=== PATIENT | male | born 1955 | race Caucasian/White ===

== ENCOUNTER 2019-04-29 16:56 | Inpatient (IN) ==
[2019-04-29 17:34] LABS: Basophils # 0.1 10*3/uL (0.0-0.2); Basophils % 0.4 % (0.0-0.8); Eosinophils % 0.1 % (0.00-10.9); Hematocrit 45.2 VOL% (42.0-52.0); Hemoglobin 14.9 GM/DL (14.0-18.0); Immature Granulocytes % 1.6 %; Immature Granulocytes Absolute 0.52 #; Lymphocytes # 1.7 10*3/uL (1.4-4.0); Lymphocytes % 5.2 % (21.2-54.2); Mean Platelet Volume 11.9 FL (9.6-12.0); Neutrophils % 85.7 % (38.7-73.9); Platelet Count 197 T/CUMM (130-400); Red Blood Count 5.02 MC/CUMM (3.8-5.5); Red Cell Distribution Width 13.2 % (9.3-17.3); White Blood Count 32.9 T/CUMM (4-12)
[2019-04-29] MEDS ORDERED: ONDANSETRON 4 MG/2 ML VIAL ONE (17:38)
[2019-04-29] MEDS ORDERED: MORPHINE 4 MG/1 ML VIAL ONE (17:39)
[2019-04-29 17:43] LABS: Calcium 9.3 MG/DL (8.5-10.1); Osmolality,Calculated 289.8 MOS/KG (273-304)
[2019-04-29] MEDS ORDERED: MORPHINE 4 MG/1 ML VIAL IV STA (17:44)
[2019-04-29] MEDS ORDERED: ONDANSETRON 4 MG/2 ML VIAL IV STA (17:44)
[2019-04-29 17:53] LABS: Band Neutrophils 2 % (0-10); Lymphocytes 2 % (20-55); Platelet Estimate Normal; Segmented Neutrophils 90 % (50-85); Total Cells Counted 100
[2019-04-29] MEDS ORDERED: MORPHINE 4 MG/1 ML VIAL IV PRN (20:07)
[2019-04-29] MEDS ORDERED: ACETAMINOPHEN 325 MG TABLET PO PRN ×2 (20:07→20:35)
[2019-04-29] MEDS ORDERED: ONDANSETRON 4 MG/2 ML VIAL IV PRN ×2 (20:07→20:35)
[2019-04-29] MEDS ORDERED: LORATADINE 10 MG TABLET PO PRN (20:35)
[2019-04-29] MEDS ORDERED: HYDROmorphone 2 MG/1 ML VIAL IV PRN (20:35)
[2019-04-29] MEDS: PIPERACILLIN/TAZOBACTAM 3,375 MG in SODIUM CHLORIDE 0.9% 100 ML IV SCH (21:22)
[2019-04-29] MEDS: amLODIPine 5 MG TABLET PO SCH (21:23)
[2019-04-29] MEDS: SODIUM CHLORIDE 0.9% 1,000 ML IV SCH (21:23)
[2019-04-29] MEDS: DEXTROSE 5% LACTATED RINGERS 1,000 ML IV SCH (21:23)
[2019-04-30] MEDS: PIPERACILLIN/TAZOBACTAM 3,375 MG in SODIUM CHLORIDE 0.9% 100 ML IV SCH ×3 (05:07→21:20)
[2019-04-30 05:08] LABS: Basophils % 0.2 % (0.0-0.8); Hematocrit 39.6 VOL% (42.0-52.0); Hemoglobin 13.1 GM/DL (14.0-18.0); Immature Granulocytes % 0.5 %; Immature Granulocytes Absolute 0.08 #; Lymphocytes # 1.3 10*3/uL (1.4-4.0); Lymphocytes % 8.4 % (21.2-54.2); Mean Corpuscular HGB Conc 33.1 GM/DL (32-36); Mean Corpuscular Volume 88.8 FL (87-102); Mean Platelet Volume 11.7 FL (9.6-12.0); Neutrophils % 83.9 % (38.7-73.9); Platelet Count 139 T/CUMM (130-400); Red Blood Count 4.46 MC/CUMM (3.8-5.5); Red Cell Distribution Width 13.4 % (9.3-17.3); White Blood Count 15.1 T/CUMM (4-12)
[2019-04-30] MEDS: DEXTROSE 5% LACTATED RINGERS 1,000 ML IV SCH ×2 (05:08→17:09)
[2019-04-30] MEDS: SODIUM CHLORIDE 0.9% 1,000 ML IV SCH (05:08)
[2019-04-30 05:39] LABS: Albumin 3.3 G/DL (3.4-5.0); Bilirubin,Total 0.9 MG/DL (0.2-1.0); Calcium 8.1 MG/DL (8.5-10.1); Osmolality,Calculated 287.1 MOS/KG (273-304)
[2019-04-30 05:40] LABS: Calcium 8.1 MG/DL (8.5-10.1); Osmolality,Calculated 284.3 MOS/KG (273-304)
[2019-04-30] MEDS ORDERED: ceFAZolin 2,000 MG in PREMIX 1 EACH IV ONE (07:19)
[2019-04-30] MEDS ORDERED: PANTOPRAZOLE 40 MG VIAL IV SCH (09:00)
[2019-04-30] MEDS ORDERED: BACITRACIN OINT 0.9 GM PACK TOP ONE (09:49)
[2019-04-30] MEDS ORDERED: KETOROLAC 30 MG/1 ML VIAL IV PRN (10:11)
[2019-04-30] MEDS ORDERED: MORPHINE 4 MG/1 ML VIAL IV PRN ×2 (10:11)
[2019-04-30] MEDS ORDERED: MAGNESIUM HYDROXIDE SUSP 30 ML UDCUP PO PRN (10:11)
[2019-04-30] MEDS ORDERED: LIDOCAINE 2% 5 ML VIAL ONE (10:16)
[2019-04-30] MEDS ORDERED: SEVOFLURANE 1 UNIT/15 MINUTE INH ONE (10:16)
[2019-04-30] MEDS ORDERED: PROPOFOL 200 MG/20 ML VIAL IV ONE (10:16)
[2019-04-30] MEDS ORDERED: fentaNYL 100 MCG/2 ML VIAL ONE (10:17)
[2019-04-30] MEDS ORDERED: ACETAMINOPHEN 1,000 MG/100 ML VIAL IV ONE (10:17)
[2019-04-30] MEDS ORDERED: ONDANSETRON 4 MG/2 ML VIAL ONE (10:17)
[2019-04-30] MEDS ORDERED: PHENYLEPHRINE 1 MG/10 ML SYRINGE IV ONE (10:17)
[2019-04-30] MEDS ORDERED: GLYCOPYRROLATE 0.4 MG/2 ML VIAL ONE (10:17)
[2019-04-30] MEDS ORDERED: LACTATED RINGERS 1,000 ML IV ONE (10:17)
[2019-04-30] MEDS ORDERED: MIDAZOLAM 2 MG/2 ML VIAL ONE (10:17)
[2019-04-30] MEDS ORDERED: ALBUTEROL/IPRATROPIUM 3 ML NEB RESP TX PRN (10:27)
[2019-04-30] MEDS ORDERED: HYDROmorphone 2 MG/1 ML VIAL ONE (10:47)
[2019-04-30] MEDS: HYDROmorphone 2 MG/1 ML VIAL IV PRN ×2 (10:48→10:53)
[2019-04-30] MEDS: PANTOPRAZOLE 40 MG TABLET PO SCH (13:14)
[2019-04-30] MEDS: ALBUTEROL/IPRATROPIUM 3 ML NEB RESP TX SCH ×2 (14:53→19:33)
[2019-04-30] MEDS: amLODIPine 5 MG TABLET PO SCH (21:20)
[2019-05-01] MEDS: ALBUTEROL/IPRATROPIUM 3 ML NEB RESP TX SCH ×4 (00:29→19:54)
[2019-05-01] MEDS: PIPERACILLIN/TAZOBACTAM 3,375 MG in SODIUM CHLORIDE 0.9% 100 ML IV SCH ×3 (05:38→21:07)
[2019-05-01 05:59] LABS: Basophils % 0.2 % (0.0-0.8); Eosinophils # 0.1 10*3/uL (0.0-0.87); Eosinophils % 0.8 % (0.00-10.9); Hematocrit 34.3 VOL% (42.0-52.0); Hemoglobin 11.2 GM/DL (14.0-18.0); Immature Granulocytes % 0.2 %; Immature Granulocytes Absolute 0.02 #; Lymphocytes % 11.3 % (21.2-54.2); Mean Corpuscular HGB Conc 32.7 GM/DL (32-36); Mean Platelet Volume 11.7 FL (9.6-12.0); Neutrophils % 77.5 % (38.7-73.9); Platelet Count 107 T/CUMM (130-400); Red Blood Count 3.81 MC/CUMM (3.8-5.5); Red Cell Distribution Width 13.6 % (9.3-17.3); White Blood Count 9.2 T/CUMM (4-12)
[2019-05-01 06:30] LABS: Calcium 8.2 MG/DL (8.5-10.1); Osmolality,Calculated 285.8 MOS/KG (273-304)
[2019-05-01] MEDS: DEXTROSE 5% LACTATED RINGERS 1,000 ML IV SCH (06:46)
[2019-05-01] MEDS: PANTOPRAZOLE 40 MG TABLET PO SCH (09:18)
[2019-05-01] MEDS: FONDAPARINUX 2.5 MG/0.5 ML SYRINGE SUBCUT SCH (09:19)
[2019-05-01] MEDS: amLODIPine 5 MG TABLET PO SCH (21:07)
[2019-05-02] MEDS: ALBUTEROL/IPRATROPIUM 3 ML NEB RESP TX SCH ×4 (00:30→20:40)
[2019-05-02] MEDS: PIPERACILLIN/TAZOBACTAM 3,375 MG in SODIUM CHLORIDE 0.9% 100 ML IV SCH (05:03)
[2019-05-02 05:51] LABS: Basophils % 0.1 % (0.0-0.8); Eosinophils # 0.1 10*3/uL (0.0-0.87); Eosinophils % 1.5 % (0.00-10.9); Hematocrit 34.1 VOL% (42.0-52.0); Hemoglobin 11.1 GM/DL (14.0-18.0); Immature Granulocytes % 0.4 %; Immature Granulocytes Absolute 0.03 #; Lymphocytes # 1.4 10*3/uL (1.4-4.0); Lymphocytes % 17.4 % (21.2-54.2); Mean Corpuscular HGB Conc 32.6 GM/DL (32-36); Mean Corpuscular Volume 90.7 FL (87-102); Mean Platelet Volume 11.9 FL (9.6-12.0); Monocytes % 10.5 % (1.7-12.7); Neutrophils % 70.1 % (38.7-73.9); Platelet Count 105 T/CUMM (130-400); Red Blood Count 3.76 MC/CUMM (3.8-5.5); Red Cell Distribution Width 13.4 % (9.3-17.3); White Blood Count 7.8 T/CUMM (4-12)
[2019-05-02] MEDS: PANTOPRAZOLE 40 MG TABLET PO SCH (10:01)
[2019-05-02] MEDS: FONDAPARINUX 2.5 MG/0.5 ML SYRINGE SUBCUT SCH (10:01)
[2019-05-02] MEDS: amLODIPine 5 MG TABLET PO SCH (20:58)
[2019-05-03] MEDS: ALBUTEROL/IPRATROPIUM 3 ML NEB RESP TX SCH ×2 (00:33→07:28)
[2019-05-03 06:04] LABS: Basophils % 0.3 % (0.0-0.8); Eosinophils # 0.2 10*3/uL (0.0-0.87); Eosinophils % 2.1 % (0.00-10.9); Hematocrit 33.3 VOL% (42.0-52.0); Hemoglobin 11.1 GM/DL (14.0-18.0); Immature Granulocytes % 0.4 %; Immature Granulocytes Absolute 0.03 #; Lymphocytes # 1.1 10*3/uL (1.4-4.0); Lymphocytes % 13.6 % (21.2-54.2); Mean Corpuscular HGB Conc 33.3 GM/DL (32-36); Mean Platelet Volume 11.9 FL (9.6-12.0); Monocytes % 10.1 % (1.7-12.7); Neutrophils % 73.5 % (38.7-73.9); Platelet Count 126 T/CUMM (130-400); Red Blood Count 3.74 MC/CUMM (3.8-5.5); Red Cell Distribution Width 13.3 % (9.3-17.3); White Blood Count 7.8 T/CUMM (4-12)
[2019-05-03] MEDS: FONDAPARINUX 2.5 MG/0.5 ML SYRINGE SUBCUT SCH (08:48)
[2019-05-03] MEDS: PANTOPRAZOLE 40 MG TABLET PO SCH (08:48)
[2019-05-03 11:57] VITALS: BP 130/74
== END 2019-05-03 13:55 | disposition home or self-care (01) | DRG 958 ==
LOC: N.ED 16:56 → N.EDINP 18:58 → N.3E 19:15
PROVIDERS: ADMIT Surgery; ATTEND Surgery